=== PATIENT | male | born 1995 | race Caucasian/White ===

== ENCOUNTER → 2023-02-19 11:17 | Outpatient (BNVA) | payer OTHER, SELFPAY | PROVIDERS: PCP Nurse Practitioner; Visit Provider Nurse Practitioner | DX: R21 Rash and other nonspecific skin eruption (principal) | CPT/HCPCS: 86003; 86008 ==

== ENCOUNTER 2024-12-18 08:51 | Emergency (ER) | payer OTHER, SELFPAY ==
[2024-12-18] VITALS (7 sets, daily range): BP systolic 119–135; BP diastolic 74–89; PULSE 79–94; RESP 16–18; TEMP 36.8; O2SAT 97–100; BMI 23.7
--- NOTE | 2024-12-18 09:22 | US_ITS ---
WS: [id number] TESTICULAR ULTRASOUND HISTORY: post-vasectomy pain and swelling COMPARISON: None available. TECHNIQUE: Real-time and color Doppler imaging utilized to perform a testicular ultrasound. Right testicle: 1.8 cm x 4.5 cm x 2.7 cm. Normal size and echogenicity. No mass or torsion. Normal color Doppler is present throughout. Systolic and diastolic velocities are both present. No significant hydrocele. Right epididymis: Normal epididymis. Small amount of complex material Left testicle: 4.3 cm x 2.9 cm x 2.2 cm. Normal size and echogenicity. No mass or torsion. Normal color Doppler is present throughout. Systolic and diastolic velocities are both present. Large complex fluid collection surrounding the LEFT testicle and displacing the testicle. There is no increased vascularity. There are septations and variable echogenicity. This is most consistent with moderate size hematoma within the scrotal sac. This hematoma extends into the LEFT inguinal canal. Left epididymis: Normal epididymis with no increased vascularity. US/US scrotum [id number] IMPRESSION: 1. Large complex collection extending from the LEFT inguinal canal into the sc rotal sac and posterior to the LEFT scrotum. Most consistent with a moderate-si zed hematoma. Less likely abscess although that is within the differential. 2. No testicular mass or torsion.
--- NOTE | 2024-12-18 09:59 | ED_ITS ---
Documented by User: CARLOZ Villaseñor 12/18/24 14:08 HPI - Male Genitourinary 2 General: Chief complaint: Urogenital-Male Stated complaint: male part problems w/fever Time Seen by Provider: 12/18/24 08:54 Source: patient Mode of arrival: ambulatory Limitations: no limitations History of Present Illness: Patient is a 28-year-old male who presents to ED today along with his significant other for evaluation of scrotal swelling and bruising. He is approximately 10 days post vasectomy by Dr. Mckeon. Patient states he was compliant post procedure and did not do any lifting and iced/elevated area as instructed. He was seen again by Dr. Mckeon on Wednesday and had a significant amount of swelling and bruising at that time. He was instructed to continue conservative therapies at home. Patient concerned as area does not seem to be improving. There was some concern of possible low-grade fever as well. He is afebrile here. MD Complaint: other (Scrotal pain, swelling, bruising) Onset (ago): day(s) Duration: constant Location: right testicle and left testicle Severity: severe Quality: aching Relieving factors: none Exacerbating factors: none Associated symptoms: Reports no associated symptoms; Deny hematuria or vomiting Related Data Home Medications ?Medication ?Instructions ?Recorded ?Confirmed multivitamin 1 tab PO DAILY 10/20/2412/03 omega-3 fatty acids 1,000 mg 1,000 mg PO DAILY 5 12/18/24 capsule prednisone 5 mg tablet 5 mg PO DAILY PRN allergic r eaction 10/20/24 12/18/24 ibuprofen 600 mg tablet 600 mg PO TID PRN Pain 12/1812/18/24 Allergies Allergy/AdvReac Type Severity Reaction Status Date / Time No Known Allergies Allergy Verified 07/11/24 08:54 Review of Systems 2 Const: Reports: fever(s); Denies: chills, body aches, fatigue or malaise Card: Denies: chest pain Resp: Denies: dyspnea GI: Denies: abdominal pain, vomiting or change in bowel habits : Reports: scrotal swelling; Denies: flank pain or hematuria Skin/Breast: Denies: rash PFSH ED 2 PFSH: Medical History Upper respiratory infection Flu-like symptoms Strep pharyngitis Surgical History No pertinent past surgical history Family History Grandmother Lupus Family/Other Lupus Social History Smoking and tobacco/nicotine status: never used tobacco/nicotine Second hand smoke exposure: No Alcohol intake: never Substance/Drug Use: never Current occupation: [employer] Physical Exam 2 Const: COMMON NORMALS: no acute distress, average body habitus, no limitations, healthy appearing, alert and well nourished GENERAL APPEARANCE: cooperative : MALE GROIN/PERINEUM EXAM: Yes ecchymosis and Yes edema PENIS: normal penis SCROTUM: Yes Scrotal tenderness present, Yes ecchymosis, Yes edematous and Yes scrotal swelling OTHER: significant swelling to L scroum and L inguinal canal with significant ecchymosis Neuro: SENSORIUM/ORIENTATION: Yes alert Course 2 Consultations: Consultation #1: [facility] [place] for surgical drainage; [facility] wait times 1-2 days Consultation #2: Dr. Sawyer urology-recommending transfer for consult; spoke to ED physician Dr. Flores who is accepting patient Vital Signs: Vital signs: Vital Signs Temperature 98.2 F 12/18/24 09:17 Pulse Rate 79 12/18/24 14:15 Respiratory Rate 16 12/18/24 14:15 Blood Pressure 126/78 12/18/24 14:15 Pulse Oximetry 98 12/18/24 14:15 Oxygen Delivery Me thod Room Air 12/18/24 10:49 [facility] - Male Medical Decision Making Patient with a very large left scrotal hematoma displacing the testicle. Hematoma extending into the left inguinal canal. I spoke initially with [facility], Dr. Holland who felt this most likely would require evacuation. Unfortunately [facility] ER on divert and they are on a 1 to 2-day wait list. [employer] does not have urology coverage this week. Spoke to [facility] transfer line who spoke to Dr. [facility] who is recommending transfer to ER for urology consult. Dr. Horstman aware of patient and agrees with need for transfer. Medical Records I reviewed the patient's medical records. Lab Data I reviewed the patient's lab results. 12/18/24 10:24 12/18/24 10:24 Radiology Impressions Scrotum Ultrasound 12/18/24 09:22 IMPRESSION: 1. Large complex collection extending from the LEFT inguinal canal into the scrotal sac and posterior to the LEFT scrotum. Most consistent with a moderate- sized hematoma. Less likely abscess although that is within the differential. 2. No testicular mass or torsion. Laboratory Results WBC 11.06 10^3/uL (3.29-11.43) 12/18/24 10:24 RBC 5.18 10^6/uL (3.85-5.65) 12/18/24 10:24 Hgb 15.10 g/dL (11.27-16.99) 12/18/24 10:24 Hct 45.1 % (37-53) 12/18/24 10:24 MCV 87.1 fl (82-101) 12/18/24 10:24 MCH 29.2 pg (27-33) 12/18/24 10:24 MCHC 33.5 g/dL (30-55) 12/18/24 10:24 RDW 12.2 % (12.1-15.1) 12/18/24 10:24 Plt Count 317 10^3/cmm (157-399) 12/18/24 10:24 MPV 8.3 fL (7.4-10.4) 12/18/24 10:24 Neut % (Auto) 75.7 % 12/18/24 10:24 Lymph % (Auto) 14.3 % 12/18/24 10:24 Kimball % (Auto) 8.7 % 12/18/24 10:24 Eos % (Auto) 0.4 % 12/18/24 10:24 Baso % (Auto) 0.5 % 12/18/24 10:24 Neut # (Auto) 8.38 10^3/uL (1.8-7.7) H 12/18/24 10:24 Lymph # (Auto) 1.6 10^3/uL (0.8-4.8) 12/18/24 10:24 Kimball # (Auto) 1.0 10^3/uL (0.2-0.9) H 12/18/24 10:24 Eos # (Auto) 0.0 10^3/uL (0.0-0.8) 12/18/24 10:24 Baso # (Auto) 0.1 10^3/uL (0.0-0.1) 12/18/24 10:24 Nucleated RBC % (auto) 0 % 12/18/24 10:24 Nucleated RBCs # 0.0 /100WBC 12/18/24 10:24 Sodium 139 mmol/L (136-145) 12/18/24 10:24 Potassium 4.3 mmol/L (3.5-5.1) 12/18/24 10:24 Chloride 103 mmol/L (98-107) 12/18/24 10:24 Carbon Dioxide 24 mmol/L (22-29) 12/18/24 10:24 Anion Gap 16.3 (5-19) 12/18/24 10:24 BUN 16 mg/dL (6-20) 12/18/24 10:24 Creatinine 0.8 mg/dL (0.7-1.2) 12/18/24 10:24 GFR Calculation 115.1 mL/min (90-130) 12/18/24 10:24 Glucose 98 mg/dL (65-115) 12/18/24 10:24 Calculated Osmolality 289 mOsm/kg (285-295) 12/18/24 10:24 Calcium 9.7 mg/dL (8.5-10.5) 12/18/24 10:24 Total Bilirubin 0.6 mg/dL (0.15-1.2) 12/18/24 10:24 AST 11 U/L (0-40) 12/18/24 10:24 ALT 10 U/L (0-41) 12/18/24 10:24 Alkaline Phosphatase 66 U/L (40-130) 12/18/24 10:24 Total Protein 7.9 g/dL (6.6-8.7) 12/18/24 10:24 Albumin 4.2 g/dL (3.5-5.2) 12/18/24 10:24 Globulin 3.7 g/dL (1.3-4.6) 12/18/24 10:24 Urine Color Dark yellow (Yellow) A 12/18/24 10:50 Urine Appearance Clear (CLEAR) 12/18/24 10:50 Urine pH 7.0 (5-7) 12/18/24 10:50 Ur Specific [place] 1.033 (1.005-1.030) H 12/18/24 10:50 Urine Protein Trace (Negative) A 12/18/24 10:50 Urine Glucose (UA) Negative (Normal) 12/18/24 10:50 Urine Ketones 1+ (Negative) H 12/18/24 10:50 Urine Blood Negative (Negative) 12/18/24 10:50 Urine Nitrate Negative (Negative) 12/18/24 10:50 Urine Bilirubin Negative (Negative) 12/18/24 10:50 Urine Urobilinogen 4.0 mg/dL (Negative) H 12/18/24 10:50 Ur Leukocyte Esterase Negative (Negative) 12/18/24 10:50 Urine RBC 3-5 /hpf (0-2) 12/18/24 10:50 Urine WBC 0-5 /hpf (0-5) 12/18/24 10:50 Ur Squamous Epith Cells 0-5 /hpf (0-5) 12/18/24 10:50 Amorphous Sediment Not Reportable 12/18/24 10:50 Urine Bacteria None seen /hpf (NONE) 12/18/24 10:50 Hyaline Casts 0-4 /lpf H 12/18/24 10:50 All radiology interpretation(s) finalized by discharge Discharge Plan Discharge Patient Disposition: Xfer Short-Term Hosp Clinical Impression: Hematoma of scrotum Condition: Stable Referrals: Vipin Cantrell MD [Primary Care Provider, Family Practice] Print Language: Monegasque Coding Level of Care Code ED Diet Technician Registered for Chg Fwd Documented by User: Jacob Betancourt DO 12/18/24 18:36 HPI - Male Genitourinary 2 General: Chief complaint: Urogenital-Male Stated complaint: male part problems w/fever Time Seen by Provider: 12/18/24 08:54 Related Data Home Medications ?Medication ?Instructions ?Recorded ?Confirmed multivitamin 1 tab PO DAILY 10/20/2412/03 omega-3 fatty acids 1,000 mg 1,000 mg PO DAILY 5 12/18/24 capsule prednisone 5 mg tablet 5 mg PO DAILY PRN allergic r eaction 10/20/24 12/18/24 ibuprofen 600 mg tablet 600 mg PO TID PRN Pain 12/1812/18/24 Allergies Allergy/AdvReac Type Severity Reaction Status Date / Time No Known Allergies Allergy Verified 07/11/24 08:54 PFS ED 2 PFSH: Medical History Upper respiratory infection Flu-like symptoms Strep pharyngitis Surgical History No pertinent past surgical history Family History Grandmother Lupus Family/Other Lupus Social History Smoking and tobacco/nicotine status: never used tobacco/nicotine Second hand smoke exposure: No Alcohol intake: never Substance/Drug Use: never Current occupation: [employer] 2 Vital Signs: Vital signs: Vital Signs Temperature 98.2 F 12/18/24 09:17 Pulse Rate 79 12/18/24 14:15 Respiratory Rate 16 12/18/24 14:15 Blood Pressure 126/78 12/18/24 14:15 Pulse Oximetry 98 12/18/24 14:15 Oxygen Delivery Me thod Room Air 12/18/24 10:49 [facility] - Male Medical Decision Making Patient with a very large left scrotal hematoma displacing the testicle. Hematoma extending into the left inguinal canal. I spoke initially with [facility], Dr. Holland who felt this most likely would require evacuation. Unfortunately [facility] ER on divert and they are on a 1 to 2-day wait list. [employer] does not have urology coverage this week. Spoke to [facility] transfer line who spoke to Dr. Stevens, urology who is recommending transfer to ER for urology consult. Dr. Betancourt aware of patient and agrees with need for transfer. Chart reviewed and patient discussed with midlevel. Agree with assessment and plan. Lab Data 12/18/24 10:24 12/18/24 10:24 Radiology Impressions Scrotum Ultrasound 12/18/24 09:22 IMPRESSION: 1. Large complex collection extending from the LEFT inguinal canal into the scrotal sac and posterior to the LEFT scrotum. Most consistent with a moderate- sized hematoma. Less likely abscess although that is within the differential. 2. No testicular mass or torsion. Laboratory Results WBC 11.06 10^3/uL (3.29-11.43) 12/18/24 10:24 RBC 5.18 10^6/uL (3.85-5.65) 12/18/24 10:24 Hgb 15.10 g/dL (11.27-16.99) 12/18/24 10:24 Hct 45.1 % (37-53) 12/18/24 10:24 MCV 87.1 fl (82-101) 12/18/24 10:24 MCH 29.2 pg (27-33) 12/18/24 10:24 MCHC 33.5 g/dL (30-55) 12/18/24 10:24 RDW 12.2 % (12.1-15.1) 12/18/24 10:24 Plt Count 317 10^3/cmm (157-399) 12/18/24 10:24 MPV 8.3 fL (7.4-10.4) 12/18/24 10:24 Neut % (Auto) 75.7 % 12/18/24 10:24 Lymph % (Auto) 14.3 % 12/18/24 10:24 Kimball % (Auto) 8.7 % 12/18/24 10:24 Eos % (Auto) 0.4 % 12/18/24 10:24 Baso % (Auto) 0.5 % 12/18/24 10:24 Neut # (Auto) 8.38 10^3/uL (1.8-7.7) H 12/18/24 10:24 Lymph # (Auto) 1.6 10^3/uL (0.8-4.8) 12/18/24 10:24 Kimball # (Auto) 1.0 10^3/uL (0.2-0.9) H 12/18/24 10:24 Eos # (Auto) 0.0 10^3/uL (0.0-0.8) 12/18/24 10:24 Baso # (Auto) 0.1 10^3/uL (0.0-0.1) 12/18/24 10:24 Nucleated RBC % (auto) 0 % 12/18/24 10:24 Nucleated RBCs # 0.0 /100WBC 12/18/24 10:24 Sodium 139 mmol/L (136-145) 12/18/24 10:24 Potassium 4.3 mmol/L (3.5-5.1) 12/18/24 10:24 Chloride 103 mmol/L (98-107) 12/18/24 10:24 Carbon Dioxide 24 mmol/L (22-29) 12/18/24 10:24 Anion Gap 16.3 (5-19) 12/18/24 10:24 BUN 16 mg/dL (6-20) 12/18/24 10:24 Creatinine 0.8 mg/dL (0.7-1.2) 12/18/24 10:24 GFR Calculation 115.1 mL/min (90-130) 12/18/24 10:24 Glucose 98 mg/dL (65-115) 12/18/24 10:24 Calculated Osmolality 289 mOsm/kg (285-295) 12/18/24 10:24 Calcium 9.7 mg/dL (8.5-10.5) 12/18/24 10:24 Total Bilirubin 0.6 mg/dL (0.15-1.2) 12/18/24 10:24 AST 11 U/L (0-40) 12/18/24 10:24 ALT 10 U/L (0-41) 12/18/24 10:24 Alkaline Phosphatase 66 U/L (40-130) 12/18/24 10:24 Total Protein 7.9 g/dL (6.6-8.7) 12/18/24 10:24 Albumin 4.2 g/dL (3.5-5.2) 12/18/24 10:24 Globulin 3.7 g/dL (1.3-4.6) 12/18/24 10:24 Urine Color Dark yellow (Yellow) A 12/18/24 10:50 Urine Appearance Clear (CLEAR) 12/18/24 10:50 Urine pH 7.0 (5-7) 12/18/24 10:50 Ur Specific [place] 1.033 (1.005-1.030) H 12/18/24 10:50 Urine Protein Trace (Negative) A 12/18/24 10:50 Urine Glucose (UA) Negative (Normal) 12/18/24 10:50 Urine Ketones 1+ (Negative) H 12/18/24 10:50 Urine Blood Negative (Negative) 12/18/24 10:50 Urine Nitrate Negative (Negative) 12/18/24 10:50 Urine Bilirubin Negative (Negative) 12/18/24 10:50 Urine Urobilinogen 4.0 mg/dL (Negative) H 12/18/24 10:50 Ur Leukocyte Esterase Negative (Negative) 12/18/24 10:50 Urine RBC 3-5 /hpf (0-2) 12/18/24 10:50 Urine WBC 0-5 /hpf (0-5) 12/18/24 10:50 Ur Squamous Epith Cells 0-5 /hpf (0-5) 12/18/24 10:50 Amorphous Sediment Not Reportable 12/18/24 10:50 Urine Bacteria None seen /hpf (NONE) 12/18/24 10:50 Hyaline Casts 0-4 /lpf H 12/18/24 10:50 Discharge Plan Discharge Patient Disposition: Xfer Short-Term Hosp Clinical Impression: Hematoma of scrotum Condition: Stable Referrals: Vipin Cantrell MD [Primary Care Provider, [facility]] Print Language: Monegasque Coding Level of Care Code ED Diet Technician Registered for Kattyg Shaista
[2024-12-18 10:34] LABS: Basophils # 0.1 10^3/uL (0.0-0.1); Basophils % 0.5 %; Eosinophils % 0.4 %; Hematocrit 45.1 % (37-53); Lymphocytes # 1.6 10^3/uL (0.8-4.8); Lymphocytes % 14.3 %; Mean Corpuscular HGB Conc 33.5 g/dL (30-55); Mean Corpuscular Hemoglobin 29.2 pg (27-33); Mean Corpuscular Volume 87.1 fl (82-101); Mean Platelet Volume 8.3 fL (7.4-10.4); Monocytes % 8.7 %; Neutrophils # 8.38 10^3/uL (1.8-7.7); Neutrophils % 75.7 %; Nucleated Red Blood Cells % 0 %; Platelet Count 317 10^3/cmm (157-399); Red Blood Count 5.18 10^6/uL (3.85-5.65); Red Cell Distribution Width 12.2 % (12.1-15.1); White Blood Count 11.06 10^3/uL (3.29-11.43)
[2024-12-18 10:51] LABS: Alanine Aminotransferase 10 U/L (0-41); Albumin Level 4.2 g/dL (3.5-5.2); Alkaline Phosphatase 66 U/L (40-130); Anion Gap 16.3 (5-19); Aspartate Amino Transferase 11 U/L (0-40); Blood Urea Nitrogen 16 mg/dL (6-20); Calcium 9.7 mg/dL (8.5-10.5); Carbon Dioxide 24 mmol/L (22-29); Chloride 103 mmol/L (98-107); Creatinine Clr Calc Pharmacy 156.7199; Globulin 3.7 g/dL (1.3-4.6); Glomerular Filtration Rate 115.1 mL/min (90-130); Glucose 98 mg/dL (65-115); Osmolality Calculated 289 mOsm/kg (285-295); Potassium 4.3 mmol/L (3.5-5.1); Sodium 139 mmol/L (136-145); Total Bilirubin 0.6 mg/dL (0.15-1.2); Total Protein 7.9 g/dL (6.6-8.7)
[2024-12-18 11:08] LABS: Bilirubin Urine Negative (Negative); Blood Urine Negative (Negative); Glucose Urine UA Negative (Normal); Ketones Urine 1+ (Negative); Leukocyte Esterase Urine Negative (Negative); Nitrate Urine Negative (Negative); Protein Urine Trace (Negative); Urine Appearance Clear (CLEAR); Urine Color Dark Yellow (Yellow)
[2024-12-18 11:10] LABS: Add Urine Microscopic? YES; Bacteria Urine None Seen /hpf; Hyaline Casts Urine 0-4 /lpf; Squamous Epithelial Cell Urine 0-5 /hpf (0-5); WBC Urine 0-5 /hpf (0-5)
[2024-12-18 11:16] LABS: Specific Gravity, Urine 1.033 (1.005-1.030)
== END 2024-12-18 14:17 | disposition short-term general hospital (02) ==
PROVIDERS: Emergency Provider Physician Assistant; PCP Family Medicine
DX: S30.22XA Contusion of scrotum and testes, initial encounter (principal); X58.XXXA Exposure to other specified factors, initial encounter
CPT/HCPCS: 36415; 76870; 80053; 81001; 85025; 99284